=== PATIENT | female | born 1955 ===

== ENCOUNTER → 2022-07-23 | Outpatient (CLI) | payer OTHER | END | disposition home or self-care (01) | LOC: MAMO-SONO 11:54 | PROVIDERS: ATTEND General Practice | DX: Z12.31 Encounter for screening mammogram for malignant neoplasm of breast (principal); N64.4 Mastodynia; R51.9 Headache, unspecified; R42 Dizziness and giddiness ==

== ENCOUNTER 2022-07-24 07:52 | Outpatient (CLI) | payer OTHER | END 2022-07-24 08:04 | disposition home or self-care (01) | LOC: SONOGRAMA 07:52 | PROVIDERS: ATTEND General Practice | DX: R10.9 Unspecified abdominal pain (principal) ==